=== PATIENT | female | born 1950 | race Two or more races ===

== ENCOUNTER 2020-10-30 06:40 | Day surgery (SDC) | payer OTHER | END 2020-10-30 11:35 | disposition home or self-care (01) | LOC: AMB-ENDOS 06:40 | PROVIDERS: ATTEND Colon & Rectal Surgery | DX: D12.0 Benign neoplasm of cecum (principal); K64.8 Other hemorrhoids; Z12.11 Encounter for screening for malignant neoplasm of colon; Z20.822 Contact with and (suspected) exposure to COVID-19 ==